=== PATIENT | female | born 1950 | race Caucasian/White ===

== ENCOUNTER 2018-05-03 13:26 | Emergency (ER) | payer MEDICARE ==
[~2018-05-03] VITALS: Ht 162.6 cm; Wt 127.3 kg
[2018-05-03] MEDS ORDERED: AMLODIPINE BESYL5 MG PO (13:56)
[2018-05-03] MEDS ORDERED: DITROPAN PO (13:56)
[2018-05-03] MEDS ORDERED: GABAPENTIN300 M2 PO (13:57)
[2018-05-03] MEDS ORDERED: LOSARTAN POT100 MG PO (13:57)
[2018-05-03] MEDS ORDERED: LASIX 40 MG TAB40 MG PO (13:57)
[2018-05-03] MEDS ORDERED: MONTELUKAST SOD10 MG PO (13:57)
[2018-05-03] MEDS ORDERED: ATENOLOL100 M1 PO (13:58)
[2018-05-03] MEDS ORDERED: LEVOTHYROXIN175 MC1 PO (13:58)
[2018-05-03] MEDS ORDERED: CLEOCIN300 MG PO (14:19)
[2018-05-03 14:33] VITALS: BP 125/66
== END 2018-05-03 14:33 | disposition home or self-care (01) ==
LOC: ED 13:26
DX: L03.116 Cellulitis of left lower limb (principal); M25.572 Pain in left ankle and joints of left foot; R22.42 Localized swelling, mass and lump, left lower limb

== ENCOUNTER 2020-09-16 13:00 | Inpatient (IN) | payer MEDICARE ==
[2020-09-16] VITALS (19 sets, daily range): BP systolic 60–102; BP diastolic 40–73
[~2020-09-16 13:00] MED LIST: AMLODIPINE BESYL5 MG PO; ATENOLOL100 M1 PO; CLEOCIN300 MG PO; DITROPAN PO; GABAPENTIN300 M2 PO; LASIX 40 MG TAB40 MG PO; LEVOTHYROXIN175 MC1 PO; LOSARTAN POT100 MG PO; MONTELUKAST SOD10 MG PO
--- NOTE | 2020-09-16 13:00 | NUR ---
TO ROOM FOR TRIAGE
--- NOTE | 2020-09-16 13:25 | NUR ---
POC REVIEWED. CALL NINO GIVEN
[2020-09-16 14:25] LABS: IMMATURE GRANULOCYTES 0.2 % (0.0-5.0); MEAN CELL VOLUME 111.5 fL CALC (80.0-100.0); MEAN CORPUSCULAR HGB CONC 31.4 g/dL CAL (32.0-36.0); NEUT# 19.13 thou/uL (2.00-7.15); RED BLOOD COUNT 3.14 mill/uL (4.20-5.60); RED CELL DISTRI WIDTH 13.1 % (11.5-15.5)
--- NOTE | 2020-09-16 15:00 | NUR ---
PATIENT NOTED TO HAVE TACHYCARDIA. PHYSICIAN AWARE. ORDERS GIVEN
[2020-09-16 15:03] LABS: ALBUMIN 3.2 g/dL (3.2-5.0); CREATININE 1.3 mg/dL (0.5-1.0); POTASSIUM 4.6 mmol/l (3.5-5.1)
[2020-09-16 15:08] LABS: BILIRUBIN, TOTAL 1.5 mg/dL (0.0-1.4); TOTAL PROTEIN 5.3 g/dL (6.3-8.2)
--- NOTE | 2020-09-16 15:20 | NUR ---
Patient states she missed cardiazem home dose. 120 mg po given. To be followed with cardiazem IV protocol.
--- NOTE | 2020-09-16 15:30 | NUR ---
Cardiazem protocol commenced. continuos monotoring continues.
--- NOTE | 2020-09-16 16:00 | NUR ---
patient hr 84. Stable
--- NOTE | 2020-09-16 17:02 | NUR ---
patient hr 80 and stable.
--- NOTE | 2020-09-16 17:58 | NUR ---
REPORT TCALLED TO [facility] RECIEVING RN IN SBAR FORMAT
--- NOTE | 2020-09-16 18:10 | NUR ---
PATIENT TO ICU VIA STRETCHER. STABLE.
--- NOTE | 2020-09-16 19:28 | NUR ---
PATIENT IS AWAKE, ORIENTED X4. ON RA, NO SOB NOTED, SPO2 96%. REPORTS PAIN ON LOWER BACK AND R-LEG, RATES 7/10. NURSE ASSESSMENT PERFORMED. POC DISCUSSED.IV X2 INTACT, NS INFUSING AT 100 ML/HR AND ROCEPHIN ANTIBIOTIC INSFUSING NOW. R-LEG RED/WARM TO TOUCH, BILAT PEDAL PULSES WEAK. AFIB ON TELEMETRY, HR 60'S. 3+ PEDAL AND LEG EDEMA BILATERALLY. PILLOW PLACED UNDER R-LEG. ICED WATER PROVIDED. CALL LIGHT WITHIN REACH.
--- NOTE | 2020-09-16 19:42 | NUR ---
CALLED AND SPOKE TO DR CATES TO NTIFY PATIENT IS HYPOTENSIVE 70'S -80'S SYSTOLIC, MAP 60, NEW ORDERS GIVEN FOR 1 LITER IV FLUID BOLUS.
[2020-09-16] MEDS ORDERED: ATENOLOL25 MG PO (19:46)
[2020-09-16] MEDS ORDERED: DITROPAN5 MG/TA1 PO (19:49)
[2020-09-16] MEDS ORDERED: DILTIAZEM120 M1 PO (19:53)
[2020-09-16] MEDS ORDERED: ALLOPURINOL300 MG PO (19:54)
[2020-09-16] MEDS ORDERED: BREO ELLIPTA1 INH (19:55)
[2020-09-16] MEDS ORDERED: CYMBALTA60 MG PO (19:56)
[2020-09-16] MEDS ORDERED: PERCOCET 10/31 COMBO PO (19:57)
[2020-09-16] MEDS ORDERED: ELIQUIS5 MG PO (19:59)
[2020-09-16] MEDS ORDERED: ACTEMRA400 MG/20 IV (19:59)
[2020-09-16] MEDS ORDERED: DAPSONE25 MG PO (20:00)
[2020-09-16] MEDS ORDERED: AMIODARONE200 MG PO (20:08)
--- NOTE | 2020-09-16 21:21 | NUR ---
NS 1 LITER BOLUS HAS FINISHE INFUSING, BP 95/65 MMHG, WILL CONTINUE TO MONITOR.
--- NOTE | 2020-09-16 21:34 | NUR ---
PROVIDED TYLENOL AND HEAT PACKS FOR PATIENT FOR BACK PAIN.
[2020-09-17] VITALS (18 sets, daily range): BP systolic 71–134; BP diastolic 45–76
--- NOTE | 2020-09-17 02:58 | NUR ---
PATIENT LAYS IN SEMI-POLANCO'S POSITION. RESTS WITH EYES CLSOED. CALL LIGHT WITHIN REACH.
--- NOTE | 2020-09-17 05:02 | NUR ---
PATIENT AWAKENS EASILY WHEN SPOKEN TO. NO COMPLAINTS OF PAIN, ANTIBIOTIC INFUSING NOW, NS INFUSING PROPERLY. ICE CHIPS PROVIDED PER REQUEST. CALL LIGHT WITHIN REACH.
--- NOTE | 2020-09-17 05:58 | NUR ---
ASSSISTED PATIENT TO BSC, CALL LIGHT WITHIN REACH.
[2020-09-17 06:29] LABS: CREATININE 1.7 mg/dL (0.5-1.0); POTASSIUM 4.6 mmol/l (3.5-5.1)
--- NOTE | 2020-09-17 06:32 | NUR ---
PATIENT REMINS ON BSC TO HAVE BM. NO ACUTE DISTRESS SHOWN.
[2020-09-17 06:36] LABS: HEMATOCRIT 29.9 % (37.0-47.0); HEMOGLOBIN 9.4 g/dl (12.0-16.0); MEAN CELL VOLUME 113.3 fL CALC (80.0-100.0); MEAN CORPUSCULAR HGB 35.6 pG CALC (26.0-32.0); MEAN CORPUSCULAR HGB CONC 31.4 g/dL CAL (32.0-36.0); RED BLOOD COUNT 2.64 mill/uL (4.20-5.60); RED CELL DISTRI WIDTH 13.2 % (11.5-15.5)
--- NOTE | 2020-09-17 06:45 | NUR ---
REPORT RECEIVED FROM MARIO COON. CARE ASSUMED.
--- NOTE | 2020-09-17 06:45 | NUR ---
PATIENT ASSISTED BACK TO BED. HAD LARGE/SOFT/BROWN BM. URINE WAS DARK SONDRA. LAYS BACK IN BED, R-LEG ELEVATED WITH PILLOW. CALL LIGHT WITHIN REACH.
--- NOTE | 2020-09-17 07:00 | NUR ---
PT RESTING IN BED AWAKE AND WATCHING TV. PT IS ALERT AND ORIENTED X3. SHIFT ASSESSMENT COMPLETED AT THIS TIME. IV PATENT X2. CALL LIGHT IN REACH. WILL CONTINUE TO MONITOR.
--- NOTE | 2020-09-17 07:59 | NUR ---
PT SET UP FOR AM MEAL AT THIS TIME.
--- NOTE | 2020-09-17 08:19 | NUR ---
Patient is screened for PT intervention and no needs are identified at this time
--- NOTE | 2020-09-17 08:45 | NUR ---
DR PALMER AT BEDSIDE AT THIS TIME. DR HATFIELD NOTIFIED OF CONSULT.
--- NOTE | 2020-09-17 10:00 | NUR ---
PT RESTING IN BED WATCHING TV. RESP ARE EVEN AND UNLABORED. NO DISTRESS NOTED. CALL LIGHT IN REACH. WILL CONTINUE TO MONITOR.
--- NOTE | 2020-09-17 11:30 | NUR ---
PT SET UP FOR NOON MEAL AT THIS TIME.
--- NOTE | 2020-09-17 11:49 | NUR ---
S: MORGAN BARAJAS is a 69 F who presents with Cellulitis. She has a history of Arthritis, Hypertension and Athritis Bullous. All medications in patient's chart were reviewed. O: VS: BP 114/71mmHg, P 86bpm, RR 32bpm ,T 98.1F W 126kg, HT 65inches, Scr=1.7mg/dL ,CrCl= 63ml/min A: Blood culture is pending. P: Patient is on Rocephin 1g IV Q24H. Vancomycin ordered for pharmacy to dose. Start Vancomycin 1g IV Q12H. Vancomycin trough is drawn before the 4th dose on 09/18/20 at 0330. Vancomycin goal trough is between 10-15 mcg/ml. Pharmacy will follow and or advise on antibiotics use as needed.
--- NOTE | 2020-09-17 12:43 | NUR ---
CARRIER WASHER ASSISTED PT UP TO BSC AND ASSISTED PT WITH HYGIENE.
--- NOTE | 2020-09-17 14:00 | NUR ---
PT RESTING IN BED WITH EYES CLOSED. RESP ARE EVEN AND UNLABORED. NO DISTRESS NOTED. CALL LIGHT IN REACH. WILL CONTINUE TO MONITOR.
--- NOTE | 2020-09-17 15:58 | NUR ---
PT RESTING IN BED WATCHING TV. RESP ARE EVEN AND UNLABORED. NO DISTRESS NOTED. CALL LIGHT IN REACH. WILL CONTINUE TO MONITOR.
--- NOTE | 2020-09-17 18:16 | NUR ---
pt resting in bed with eyes closed. resp are even and unlabored no distress noted. call light in reach. will continue to [facility].
--- NOTE | 2020-09-17 19:20 | NUR ---
awake. watching tv. teletypesetter monitor shows a fib hr 96. #20 lt hand saline lock. #20 rac ns infusing @ 125cchr. po fluids taken well. has not voided @ present. rle more red than lt. ext elevated on pillows. c/o huggins. medicated as ordered. fall precautions cont.
--- NOTE | 2020-09-17 21:15 | NUR ---
up to bsc. domo well. urine spec sent to lab.
[2020-09-17 21:32] LABS: URINE BILIRUBIN - DIPSTICK NEGATIVE (NEGATIVE); URINE BLOOD DIPSTICK NEGATIVE (NEGATIVE); URINE COLOR YELLOW; URINE GLUCOSE - DIPSTICK NEGATIVE (NEGATIVE); URINE KETONE NEGATIVE (NEGATIVE); URINE LEUK ESTERASE NEGATIVE (NEGATIVE); URINE PROTEIN - DIPSTICK NEGATIVE (NEG-TRACE); URINE SPECIFIC GRAVITY >=1.030; URINE UROBILINOGEN - DIPSTICK 0.2 E.U./dL (0.2)
[2020-09-17 21:44] LABS: URINE NITRITE - DIPSTICK NEGATIVE (Negative)
--- NOTE | 2020-09-17 22:00 | NUR ---
eyes closed. no distress. classroom monitor shows a fib hr 90.
[2020-09-18] VITALS (9 sets, daily range): BP systolic 110–158; BP diastolic 62–95
--- NOTE | 2020-09-18 00:01 | NUR ---
eyes closed. no distress. monitor car operator shows a fib hr 96.
--- NOTE | 2020-09-18 02:00 | NUR ---
resting quietly. resps even & unlabored. no apparent distress.
--- NOTE | 2020-09-18 03:30 | NUR ---
lab here. blood drawn.
[2020-09-18 03:34] LABS: HEMATOCRIT 30.3 % (37.0-47.0); HEMOGLOBIN 9.3 g/dl (12.0-16.0); MEAN CELL VOLUME 113.1 fL CALC (80.0-100.0); MEAN CORPUSCULAR HGB 34.7 pG CALC (26.0-32.0); MEAN CORPUSCULAR HGB CONC 30.7 g/dL CAL (32.0-36.0); RED BLOOD COUNT 2.68 mill/uL (4.20-5.60); RED CELL DISTRI WIDTH 13.3 % (11.5-15.5)
[2020-09-18 03:51] LABS: ALBUMIN 2.8 g/dL (3.2-5.0); CREATININE 1.5 mg/dL (0.5-1.0); MAGNESIUM 1.8 mg/dL (1.6-2.3); POTASSIUM 5.1 mmol/l (3.5-5.1)
--- NOTE | 2020-09-18 06:00 | NUR ---
awake. no c/o voiced. bus driver/monitor shows afib hr 88.
--- NOTE | 2020-09-18 06:45 | NUR ---
REPORT RECEIVED FROM MORGAN JAQUEZ. CARE ASSUMED.
--- NOTE | 2020-09-18 07:00 | NUR ---
PT RESTING IN BED AWAKE. PT IS ALERT AND ORIENTED X3. SHIFT ASSESSMENT COMPLETED AT THIS TIME. IV PATENT X2. CALL LIGHT IN REACH. WILL CONTINUE TO MONTIOR.
--- NOTE | 2020-09-18 07:50 | NUR ---
PT ASSISTED UP TO BSC BY CREDIT RISK ASSOCIATE AT THIS TIME.
--- NOTE | 2020-09-18 08:15 | NUR ---
PT ASSISTED UP TO RECLINER AND SET UP FOR AM MEAL.
--- NOTE | 2020-09-18 09:00 | NUR ---
DR PALMER AT BEDSIDE AT THIS TIME. ORDERS RECEIVED TO TRANSFER PATIENT TO [facility] WITH TELE.
--- NOTE | 2020-09-18 09:40 | NUR ---
PHONED MED SURG INFO GIVEN FOR TRANSFER AWAITING BED ASSIGNMENT
--- NOTE | 2020-09-18 09:55 | NUR ---
PT SITTING UP IN RECLINER CONVERSING GERSON PHONE AT THIS TIME. VSS ON MONITOR. CALL LIGHT IN REACH. WILL CONTINUE TO MONITOR
--- NOTE | 2020-09-18 10:00 | NUR ---
S: MORGAN BARAJAS is a 69 F who presents with cellulitis. She has a history of arthritis, HTN. All medications in patient's chart were reviewed. O: Vancomycin trough = 14 ug/ml VS: BP 148/83 mmHg, P 86 bpm, RR 16 bpm, T 97.3 F W 126 kg, HT 65 in, Scr= 1.7 mg/dl, CrCl= 63 ml/min A: Vancomycin trough level is therapeutic. Preliminary blood culture show no growth. P: Patient is on ceftriaxone 1 g IV Q24H. Vancomycin ordered for pharmacy to dose. Continue vancomycin 1 g IV Q12H. Vancomycin trough is drawn before the 4th dose on 09/19/20 @ 1530. Vancomycin goal trough is between 10-15 mcg/ml. Pharmacy will follow and or advise on antibiotics use as needed.
--- NOTE | 2020-09-18 10:30 | NUR ---
PT TO RADIOLOGY FOR KIDNEY ULTRASOUND AT THIS TIME VIA WHEELCHAIR.
--- NOTE | 2020-09-18 12:00 | NUR ---
PT SET UP AT THIS TIME FOR NOON MEAL MEAL. VS STABLE. CALL LIGHT IN REACH. WILL CONTINUE TO MONITOR.
--- NOTE | 2020-09-18 14:00 | NUR ---
pt assisted up to bsc then assisted back to bed. call light in reach. will continue to monitor.
--- NOTE | 2020-09-18 16:13 | NUR ---
PT RESTING IN BED WITH EYES CLOSED. AROUSES TO NURSE ENTERING ROOM 1600 ANTIBIOTIC STARTED AT THIS TIME. CALL LIGHT IN REACH. WILL CONTINUE TO MONITRO.
--- NOTE | 2020-09-18 18:07 | NUR ---
PT SITTING UP IN BED WATCHING TV. RESP ARE EVEN AND UNLABORED. NO DISTRESS NOTED. CALL LIGHT IN REACH. WILL CONTINUE TO MONITOR.
--- NOTE | 2020-09-18 20:44 | NUR ---
AWAKE ALERT AND ORIENTED FOLLOWS ALL REQUESTS MONITOR SHOWS AFIB RATE 80S IV RT A/C INFILTRATED NEW SITE STARTED L A/C MALOX GIVEN FOR INDIGESTION
--- NOTE | 2020-09-18 21:05 | NUR ---
MYLANTA WAS GIVEN EARLIER NOT MALOX CHARTED
--- NOTE | 2020-09-18 22:00 | NUR ---
APPEARS TO BE SLEEPING IV INFUSING CESSATION SYSTEMS OUTREACH SPECIALIST SHOWS AFIB
--- NOTE | 2020-09-18 23:53 | NUR ---
UP WITH 1 ASSIST TO BSC ANDERS FAIRLY WELL STATES I NEED AIR O2 SAT 95%
[2020-09-19] VITALS (7 sets, daily range): BP systolic 98–174; BP diastolic 77–91
--- NOTE | 2020-09-19 00:02 | NUR ---
REMAINS ON BSC MONITOR SHOWS AFIB RATE 100S
--- NOTE | 2020-09-19 01:52 | NUR ---
APPEARS TO BE SLEEPING WAIST PLEATER SHOWS AFIB RATE 90S
--- NOTE | 2020-09-19 03:47 | NUR ---
APPEARS TO BE SLEEPING SOUND PERSON SHOWS AFIB RATE 80S NO DISTRESS NOTED PT DOES HAVE O2 ON AT 2L/MIN VIA N/C PER HER REQUEST FOR COMFORT
--- NOTE | 2020-09-19 05:50 | NUR ---
RUBEN BY LAB HERE TO DO AM LABS. MONITOR SHOWS AFIB O2 IN USE C/O INDIGESTION MYLANTA GIVEN
[2020-09-19 06:31] LABS: ALBUMIN 3.2 g/dL (3.2-5.0); BUN 24 mg/dL (8-23); CARBON DIOXIDE 19 mmol/l (22-30); CHLORIDE 110 mmol/l (95-108); CREATININE 0.9 mg/dL (0.5-1.0); GFR > 60 ML/MIN (>=60 (CALC)); GFR FOR AFR.AMER. > 60 ML/MIN (>=60 (CALC)); SODIUM 137 mmol/l (137-146)
--- NOTE | 2020-09-19 15:08 | NUR ---
RECIEVED REPORT FROM JAYMIE GANNON
--- NOTE | 2020-09-19 15:40 | NUR ---
PT TO BE TRANSFERRED TO [facility] TELEMETRY ROOM 272. MADE AWARE OF PT B/P NEW ORDERS RECEIVED. TELEPHONE REPORT GIVEN TO RECIEVING NURSE.
--- NOTE | 2020-09-19 15:45 | NUR ---
TRANSPORTED SAFELY VIA W/C TO ROOM 272. GREETED BY RECIEVING NURSE.
--- NOTE | 2020-09-19 15:56 | NUR ---
PT ARRIVED TO [facility] ROOM 272 VIA WHEELCHAIR ACCOMPAINED BY JAYMIE GANNON. PT IS A/O X3. ASSESSMENT AND VITALS COMPLETED. REPSIRATIONS ARE EVEN AND UNLABORED ON 2L NC, O2 SAT 100%. HEART RHYTHM NORMAL WITH TELE IN PLACE. PEDAL PULSES WEAK.3+ EDEMA NOTED TO BLE, MORE SO ON RIGHT. CELLULITIS NOT TO RLE. #20G LAC INFUSING WITH IVF PER ORDER, SITE REAINS HEATHY AND PATENT. SKIN INTACT. PT DENIES OF ANY PAINS OR DISCOMFORTS AT THIS TIME. PT ORIENTED TO ROOM AND CALL SYSTEM. ALL SAFETY PRECAUTIONS ARE IN PLACE WITH CALL LIGHT IN REACH. WILL CONTINUE TO MONITOR.
--- NOTE | 2020-09-19 16:49 | NUR ---
JOVAN THROUGH RESULTING IN 22, PHARMACY NOTIFIED. DOSE TO BE REDUCED.
--- NOTE | 2020-09-19 16:53 | NUR ---
VANCO TROUGH IS HIGH @ 22 ... LOOKS LIKE JAGDEEP HUNG IT IN ICU AT 1456, BUT I SPOKE TO HIM AND HE SAID THE TUBING WAS STILL CLAMPED, PT DID NOT RECEIVE ANY OF THE VANCOMYCIN PRIOR TO TROUGH BEING DRAWN. SPOKE W PTS MS NURSE DARLEEN, SHE ALSO DID NOT START THE INFUSION, SO TROUGH TRULY IS HIGH. RE-DOSING NOW. PT DID NOT RECEIVE THIS AFTERNOONS DOSE.
--- NOTE | 2020-09-19 20:00 | NUR ---
PATIENT RESTING IN BED AT THIS TIME WITH HOB ELEVATED. PATIENT IS AWAKE ALERT AND ORIENTEDX3. PATIENT WITH COMPLAINT OF ABD PAIN-STATES THAT CAN'T EAT HER DINNER BECAUSE OF THE PAIN 7/10 ON PAIN SCALE. MEDICATED WITH MYLANTA 30CC ORDERED AND PERCOCET 10/325MG PO. TELE MONITOR IN PLACE, O2 VIA NASAL CANNULA IN PLACE AT 2LPM. IVF NS PATENT AND INFUSING VIA LAC SITE AT KVO RATE. RIGHT LEG IS RED, SWOLLEN AND TENDER TO TOUCH. BOTH LEGS WITH 3+ PITTING EDEMA. RIGHT GREATER THAN LEFT. ENCOURAGED PATIENT TO KEEP LEGS ELEVATED ON PILLOWS. SAFETY PRECAUTIONS REINFORCED. CALL LIGHT IN REACH. WILL CONT TO MONITOR.
[2020-09-20] VITALS (8 sets, daily range): BP systolic 143–174; BP diastolic 68–95
--- NOTE | 2020-09-20 | NUR ---
PATIENT RESTING IN BED AT THIS TIME WITH C-PAP IN PLACE. PATIENT WITH HOB ELEVATED. O2 SAT IS 95% AT THIS TIME. VS TAKEN AND RECORDED. IVF NS PATENT AND INFUSING VIA LAC SITE AT KVO RATE. TELE MONITOR IN PLACE-LAST READING WAS A-FIB-80. BLE ELEVATED ON PILLOWS. NO COMPLAINTS AT THIS TIME. SAFETY PREFCAUTIONS REINFORCED. CALL LIGHT IN REACH. WILL CONT TO MONITOR.
--- NOTE | 2020-09-20 02:46 | NUR ---
PATIENT RESTING IN BED WITH HOB ELEVATED AND HOME C-PAP IN PLACE. RESPS ARE EVEN AND UNLABORED. JOVAN SANTORO ORDERED VIA LAC SITE. TELE MONITOR IN PLACE. CALL LIGHT IN REACH. WILL CONT TO MONITOR.
--- NOTE | 2020-09-20 04:19 | NUR ---
PATIENT WITH HOB SLIGHTLY ELEVATED WITH C-PAP IN PLACE. EYES ARE CLOSED. RESPS ARE EVEN AND UNLABORED. IV VANCO INFUSING ORDERED VIA LAC SITE. SITE REMAINS HEALTHY AT THIS TIME. TELE IN PLACE WITH LAST READING A-FIB-77. CALL LIGHT IN REACH. WILL CONT TO MONITOR.
[2020-09-20 06:52] LABS: HEMATOCRIT 33.3 % (37.0-47.0); HEMOGLOBIN 10.6 g/dl (12.0-16.0); MEAN CELL VOLUME 109.9 fL CALC (80.0-100.0); MEAN CORPUSCULAR HGB CONC 31.8 g/dL CAL (32.0-36.0); RED BLOOD COUNT 3.03 mill/uL (4.20-5.60)
--- NOTE | 2020-09-20 07:00 | NUR ---
RECIEVED REPORT FROM JAYMIE LONG
[2020-09-20 07:18] LABS: ANION GAP 11 (6-22 (CALC)); BUN 22 mg/dL (8-23); BUN/CREATININE RATIO 22 (12-20 (CALC)); CHLORIDE 105 mmol/l (95-108); GFR 55 ML/MIN (>=60 (CALC)); GFR FOR AFR.AMER. > 60 ML/MIN (>=60 (CALC)); SODIUM 138 mmol/l (137-146)
[2020-09-20 07:19] LABS: CARBON DIOXIDE 26 mmol/l (22-30)
--- NOTE | 2020-09-20 07:33 | NUR ---
PT RESTING IN SEMI FOWLERS POSITION. PT IS A/OX3.ASSESSMENT AND VITALS COMPLETED.RESPIRATIONS ARE EVEN AND UNLABORED WITH NO DISTRESS NOTED.LUNG SOUNDS ARE CLEAR.HOME CPAP AT BEDSIDE. HERT RHYTHM IRREGULAR, TELE IN PLACE. BOWEL SOUNDS ARE ACTIVE.#20G LAC INFUSING WITH IVF PER ORDER, SITE REMAINS HEALTHY AND PATENT. SKIN INTACT.PEDAL PULSES WEAK. 3+ EDEMA NOTED TO BLE.RLE REDDENED. PT COMPLAINS OF" GERD PAIN" IN ABD. BALJINDER,ANRP NOTFIED. PT DENIES OF ANY ADDIITONAL NEEDS AT THIS TIME.ALL SAFETY PRECAUTIONS ARE IN PLACE WITH CALL LIGHT IN REACH.WILL CONTINUE TO MONITOR.
--- NOTE | 2020-09-20 09:00 | NUR ---
S: MORGAN BARAJAS is a 69 F who presents with cellulitis. She has a history of arthritis, HTN. All medications in patient's chart were reviewed. O: Vancomycin trough = 22 ug/ml VS: BP 161/87 mmHg, P 78 bpm, RR 20 bpm, T 97.3 F W 126 kg, HT 65 in, Scr= 0.9, CrCl= 71.9 ml/min A: Vancomycin trough supratheraputic. Will decrease the dose. Preliminary blood culture show no growth. P: Patient is on ceftriaxone 1 g IV Q24 H and vancomycin 1 g IV Q12H. Vancomycin ordered for pharmacy to dose. Decrease vancomycin to 1250 mg IV Q24H. Vancomycin trough is drawn before the 4th dose on 09/22 @0230. Vancomycin goal trough is between 10-15 mcg/ml. Pharmacy will follow and or advise on antibiotics use as needed.
--- NOTE | 2020-09-20 11:04 | NUR ---
DR PALMER AT BEDSIDE
--- NOTE | 2020-09-20 11:55 | NUR ---
PT RESTING IN SEMI FOWLERS POSITION. RESPIATIONS REMAINS EVEN AND UNLABOED WITH NO DISTRESS NOTED ON ROOM AIR. IVF INFUSIGN PER ORDER, SITE REMAINS HEALTHY AND PATENT. LASIX IV ADMINISTERED. BSC IN PLACE. PT DENIES OF ANY PAINS OR DISCOMFORTS AT THIS CECILIO. ALL SAFETY PRECAUTIONS ARE IN PLACE WITH CALL LIGHT IN REACH. WILL CONTINUE TO MONITOR.
--- NOTE | 2020-09-20 15:48 | NUR ---
ELVATED BP. ERASSESSMENT AT THIS TIME RESULTING IN 170/95, HR 88. JAYMIE RUSSO TO ADMINISTER APPRESOLINE. PT REMAINS ASYMPTOMATIC. WILL CONTINUE TO MONITOR.
--- NOTE | 2020-09-20 16:01 | NUR ---
APRESOLINE IV ADMINISTERED BY JAYMIE RUSSO
--- NOTE | 2020-09-20 17:04 | NUR ---
REASSESSMENT OF BP RESULTING IN 146/69. RESPIRTIONS REMAINS EVEN AND UNLABORED WITH NO DISTRESS.
--- NOTE | 2020-09-20 19:40 | NUR ---
SBAR REPORT RECEIVED FROM AMANDA JAQUEZ. PATIENT RESTING QUIETLY, BED IN LOW POSITION. NO DISTRESS NOTED, DENIES PAIN AT THIS TIME. CALL LIGHT WITHIN REACH.
[2020-09-21 00:12] VITALS: BP 165/92
[2020-09-21 03:44] VITALS: BP 154/86
[2020-09-21 06:11] LABS: HEMATOCRIT 35.3 % (37.0-47.0); HEMOGLOBIN 11.1 g/dl (12.0-16.0); MEAN CELL VOLUME 109.6 fL CALC (80.0-100.0); MEAN CORPUSCULAR HGB 34.5 pG CALC (26.0-32.0); MEAN CORPUSCULAR HGB CONC 31.4 g/dL CAL (32.0-36.0); RED BLOOD COUNT 3.22 mill/uL (4.20-5.60); RED CELL DISTRI WIDTH 12.9 % (11.5-15.5)
[2020-09-21 06:14] LABS: ANION GAP 11 (6-22 (CALC)); BUN 23 mg/dL (8-23); BUN/CREATININE RATIO 22 (12-20 (CALC)); CARBON DIOXIDE 28 mmol/l (22-30); CHLORIDE 103 mmol/l (95-108); GFR 55 ML/MIN (>=60 (CALC)); GFR FOR AFR.AMER. > 60 ML/MIN (>=60 (CALC)); POTASSIUM 3.9 mmol/l (3.5-5.1); SODIUM 138 mmol/l (137-146)
[2020-09-21 07:48] VITALS: BP 155/81
--- NOTE | 2020-09-21 07:48 | NUR ---
PT ALERT AND ORIENTED. VITALS AND ASSESSMENT DONE. S1 AND S2 HEARD UPON ASCULTATION. LUNGS CLEAR BILATERALLY. BOWELS ACTIVE IN ALL 4 QUADRANTS. SKIN WARM AND DRY. PEDAL PULSES WEAK. EDEMA ON FEET +3. PT REPORTS NO PAIN AT THIS TIME. IV PATENT AND HEALTHY. NO OTHER NEEDS AT THIS TIME. CALL LIGHT WITHIN REACH.
[2020-09-21] MEDS ORDERED: DOXYCYCL HYC100 MG PO (08:48)
[2020-09-21 10:25] VITALS: BP 159/103
--- NOTE | 2020-09-21 11:29 | NUR ---
PT IN BED NO DISTRESS NOTED CALL LIGHT WITHIN REACH.
--- NOTE | 2020-09-21 13:30 | NUR ---
Discharge instructions given. Patient verbalizes understanding of same. Discharged in stable condition via Wheelchair to Home with staff. All belongings sent with pt.
== END 2020-09-21 13:39 | disposition home health service (06) | DRG 871 ==
LOC: ED 13:00 → ED-I 15:45 → ED 15:57 → ICU 15:58 → MS2 22:51 → ICU 22:52 → MS2 09-19 15:47
PROVIDERS: Internal Medicine Nephrology; Nurse Practitioner; ADMIT Hospitalist; ATTEND Internal Medicine
DX: A41.9 Sepsis, unspecified organism (principal); N17.0 Acute kidney failure with tubular necrosis; L03.115 Cellulitis of right lower limb; R65.20 Severe sepsis without septic shock; I48.91 Unspecified atrial fibrillation; E87.70 Fluid overload, unspecified; I12.9 Hypertensive chronic kidney disease with stage 1 through stage 4 chronic kidney disease, or unspecified chronic kidney disease; N18.9 Chronic kidney disease, unspecified; E86.9 Volume depletion, unspecified; D64.9 Anemia, unspecified; I95.9 Hypotension, unspecified; E03.9 Hypothyroidism, unspecified; G89.29 Other chronic pain; M19.90 Unspecified osteoarthritis, unspecified site; Z79.01 Long term (current) use of anticoagulants; Z20.822 Contact with and (suspected) exposure to COVID-19
CPT/HCPCS: J1756; J3370